=== PATIENT | female | born 1980 | race Two or more races ===

== ENCOUNTER 2016-11-08 22:58 | Emergency (ER) | payer SELFPAY ==
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
== END 2016-11-09 01:10 | disposition home or self-care (01) ==
LOC: SED 22:58
DX: S40.012A Contusion of left shoulder, initial encounter (principal); S00.33XA Contusion of nose, initial encounter; Y04.8XXA Assault by other bodily force, initial encounter; Y92.009 Unspecified place in unspecified non-institutional (private) residence as the place of occurrence of the external cause
CPT/HCPCS: 70486; 73030; 99284